=== PATIENT | male | born 1940 | race African-American/Black ===

== ENCOUNTER 2019-01-25 13:21 | Inpatient (IN) ==
[2019-01-25 16:03] LABS: Apearance,Urine CLEAR (Clear); Bacteria,Urine Occasional /HPF (Few); Bilirubin,Urine Negative (Negative); Blood, Urine Negative (Negative); Glucose,Urine (UA) Negative (Negative); Ketones,Urine Negative (Negative); Mucus,Urine Occasional /LPF (Occasional); Nitrite,Urine Negative (Negative); Protein,Urine 30 MG/DL; RBC,Urine 2 /HPF (0-4); Squamous Epithelial Cell,Urine Occasional /HPF (0-10); Urine Color Yellow (Yellow); Urine Specific Gravity 1.023 (1.001-1.035); Urine Urobilinogen < 2.0 EU/DL (0.2-1.0); WBC,Urine 44 /HPF (0-6)
[2019-01-25 16:08] LABS: Basophils % 0.2 % (0.0-0.8); Eosinophils # 0.1 10*3/uL (0.0-0.87); Hematocrit 38.3 VOL% (42.0-52.0); Hemoglobin 12.4 GM/DL (14.0-18.0); Immature Granulocytes % 0.3 %; Immature Granulocytes Absolute 0.03 #; Lymphocytes # 1.6 10*3/uL (1.4-4.0); Mean Corpuscular HGB Conc 32.4 GM/DL (32-36); Mean Platelet Volume 8.7 FL (9.6-12.0); Monocytes % 14.8 % (1.7-12.7); Neutrophils % 65.7 % (38.7-73.9); Platelet Count 312 T/CUMM (130-400); Red Blood Count 4.03 MC/CUMM (3.8-5.5); Red Cell Distribution Width 11.8 % (9.3-17.3); White Blood Count 9.1 T/CUMM (4-12)
[2019-01-25 16:26] LABS: Bilirubin,Total 0.9 MG/DL (0.2-1.0); Calcium 9.9 MG/DL (8.5-10.1); Osmolality,Calculated 282.3 MOS/KG (273-304); Total Protein 7.2 G/DL (6.4-8.3)
[2019-01-25] MEDS ORDERED: MAGNESIUM SULF RIDER 2 GM in PREMIX 1 EACH IV PRN (17:48)
[2019-01-25] MEDS ORDERED: MAGNESIUM SULF RIDER 4 GM in PREMIX 1 EACH IV PRN (17:48)
[2019-01-25] MEDS ORDERED: ZALEPLON 5 MG CAPSULE PO PRN (17:48)
[2019-01-25] MEDS ORDERED: POTASSIUM CHLORIDE RIDER 10 MEQ in PREMIX 1 EACH IV PRN (17:48)
[2019-01-25] MEDS ORDERED: MAGNESIUM CITRATE 300 ML BOTTLE PO ONE (17:53)
[2019-01-25] MEDS: LEVOFLOXACIN INJ 500 MG in PREMIX 1 EACH IV SCH (21:01)
[2019-01-26 04:37] LABS: Basophils % 0.4 % (0.0-0.8); Eosinophils # 0.1 10*3/uL (0.0-0.87); Eosinophils % 1.2 % (0.00-10.9); Hematocrit 35.9 VOL% (42.0-52.0); Hemoglobin 11.8 GM/DL (14.0-18.0); Immature Granulocytes % 0.4 %; Immature Granulocytes Absolute 0.03 #; Lymphocytes # 1.4 10*3/uL (1.4-4.0); Lymphocytes % 17.2 % (21.2-54.2); Mean Corpuscular HGB Conc 32.9 GM/DL (32-36); Mean Corpuscular Volume 93.7 FL (87-102); Mean Platelet Volume 8.7 FL (9.6-12.0); Monocytes % 13.1 % (1.7-12.7); Neutrophils % 67.7 % (38.7-73.9); Platelet Count 307 T/CUMM (130-400); Red Blood Count 3.83 MC/CUMM (3.8-5.5); Red Cell Distribution Width 11.8 % (9.3-17.3); White Blood Count 8.3 T/CUMM (4-12)
[2019-01-26 05:03] LABS: Bilirubin,Direct 0.21 MG/DL (0.0-0.20); Bilirubin,Indirect 0.4 MG/DL (0.0-1.0); Bilirubin,Total 0.6 MG/DL (0.2-1.0)
[2019-01-26 05:15] LABS: Albumin 2.7 G/DL (3.4-5.0); Bilirubin,Total 0.7 MG/DL (0.2-1.0); Calcium 9.7 MG/DL (8.5-10.1); Osmolality,Calculated 281.3 MOS/KG (273-304); Risk Ratio 3.37; Thyroid Stimulating Hormone 1.81 uIU/ml (0.358-3.74); Total Protein 6.8 G/DL (6.4-8.3); VLDL CHOLESTEROL 11.2 MG/DL
[2019-01-26] MEDS ORDERED: CLOPIDOGREL 75 MG TABLET PO SCH (09:00)
[2019-01-26] MEDS ORDERED: guaiFENesin/DM ER 600-30 MG TABLET PO PRN (09:00)
[2019-01-26] MEDS: DOCUSATE SODIUM 100 MG CAPSULE PO SCH (09:30)
[2019-01-26] MEDS: LOSARTAN 50 MG TABLET PO SCH (09:30)
[2019-01-26] MEDS: BISACODYL 5 MG TABLET PO SCH (09:30)
[2019-01-26] MEDS: PANTOPRAZOLE 40 MG TABLET PO SCH (09:30)
[2019-01-26 10:31] LABS: Total Protein 6.9 G/DL (6.4-8.3)
[2019-01-26 12:43] LABS: Immuno Free Light Chain Kappa 2.37 MG/DL (0.33-1.94); Immuno Free Light Chain Lambda 2.28 MG/DL (0.57-2.63); Immuno Free Light Chain Ratio 1.04 MG/DL (0.26-1.65)
[2019-01-26] MEDS ORDERED: ONDANSETRON 4 MG/2 ML VIAL IV PRN (17:24)
[2019-01-26] MEDS: LEVOFLOXACIN INJ 500 MG in PREMIX 1 EACH IV SCH (18:24)
[2019-01-26] MEDS ORDERED: ATORVASTATIN 40 MG TABLET PO SCH (21:00)
[2019-01-27 05:10] LABS: Total Protein (Chem) 6.9 G/DL (6.4-8.3)
[2019-01-27] MEDS: LOSARTAN 50 MG TABLET PO SCH (08:18)
[2019-01-27] MEDS: PANTOPRAZOLE 40 MG TABLET PO SCH (08:18)
[2019-01-27] MEDS: DOCUSATE SODIUM 100 MG CAPSULE PO SCH (08:18)
[2019-01-27] MEDS: BISACODYL 5 MG TABLET PO SCH (08:18)
[2019-01-27 08:20] LABS: Albumin (SPE) 3.8 G/DL (3.2-5.3); Albumin (SPE) Rel % 55.1 %; Alpha 1 (SPE) 0.3 G/DL (0.1-0.4); Alpha 1 (SPE) Rel % 4.9 %; Alpha 2 (SPE) Rel % 14.4 %; Beta (SPE) 0.8 G/DL (0.5-1.1); Beta (SPE) Rel % 11.3 %; Gamma (SPE) Rel % 14.3 %
[2019-01-27] MEDS ORDERED: MAGNESIUM CITRATE 300 ML BOTTLE PO ONE (09:14)
[2019-01-27 15:58] VITALS: BP 138/84
[2019-01-27] MEDS ORDERED: PANTOPRAZOLE 40 MG TABLET PO SCH (21:00)
== END 2019-01-27 17:08 | disposition home or self-care (01) | DRG 181 ==
LOC: N.ED 13:21 → SUATTDRO 17:48 → N.EDINP 17:48 → SUPCPDRO 17:48 → N.EDINP 19:54 → N.4E 20:28
PROVIDERS: ADMIT Phlebology; ATTEND Internal Medicine

== ENCOUNTER 2021-07-12 11:30 | Inpatient (IN) ==
[2021-07-12 12:29] LABS: Basophils % 0.3 % (0.0-0.8); Eosinophils # 0.1 10*3/uL (0.0-0.87); Eosinophils % 1.8 % (0.00-10.9); Hematocrit 42.6 VOL% (42.0-52.0); Hemoglobin 14.2 GM/DL (14.0-18.0); Immature Granulocytes % 0.5 %; Immature Granulocytes Absolute 0.03 #; Lymphocytes # 1.4 10*3/uL (1.4-4.0); Lymphocytes % 20.8 % (21.2-54.2); Mean Corpuscular HGB Conc 33.3 GM/DL (32-36); Mean Corpuscular Volume 96.4 FL (87-102); Mean Platelet Volume 8.4 FL (9.6-12.0); Monocytes % 9.8 % (1.7-12.7); Neutrophils % 66.8 % (38.7-73.9); Platelet Count 294 T/CUMM (130-400); Red Blood Count 4.42 MC/CUMM (3.8-5.5); Red Cell Distribution Width 13.2 % (9.3-17.3); White Blood Count 6.6 T/CUMM (4-12)
[2021-07-12 12:40] LABS: Alanine Aminotransferase 20 U/L (16-61); Albumin 3.3 G/DL (3.4-5.0); Alkaline Phosphatase 82 U/L (45-117); Aspartate Amino Transferase 20 U/L (0-37); Bilirubin,Total < 0.39 MG/DL (0.20-1.00); Blood Urea Nitrogen 18 MG/DL (7-18); Calcium 9.3 MG/DL (8.5-10.1); Carbon Dioxide 29 MMOL/L (21-32); Estimated Glom Filtration Rate 70 ML/MIN; Glucose 96 MG/DL (74-106); Osmolality,Calculated 278.5 MOS/KG (273-304); Potassium 3.7 MMOL/L (3.5-5.1); Sodium 139 MMOL/L (136-145)
[2021-07-12] MEDS ORDERED: ACETAMINOPHEN 500 MG TABLET PO STA (14:04)
[2021-07-12] MEDS ORDERED: GLUCAGON 1 MG VIAL IM PRN (15:01)
[2021-07-12] MEDS ORDERED: LABETALOL 20 MG/4 ML SYRINGE IV PRN (15:01)
[2021-07-12] MEDS ORDERED: ONDANSETRON 4 MG/2 ML VIAL IV PRN (15:03)
[2021-07-12] MEDS ORDERED: DEXTROSE 10% 250 ML BAG IV PRN (15:12)
[2021-07-12 15:34] LABS: Mucus,Urine Occasional /LPF (Occasional); Squamous Epithelial Cell,Urine Occasional /HPF (0-10); Urine Appearance Clear (Clear); Urine Color Yellow (Yellow); Urine pH 5.5 (4.5-8.0)
[2021-07-12 15:35] LABS: Bilirubin,Urine Negative (Negative); Blood, Urine Negative (Negative); Glucose,Urine (UA) Negative (Negative); Ketones,Urine Negative (Negative); Nitrite,Urine Negative (Negative); Protein,Urine Negative (Negative)
[2021-07-12 15:46] LABS: Barbiturates Screen,Urine Negative (Negative); Benzodiazepines Screen,Urine Negative (Negative); Cannabinoid Screen,Urine Positive (Negative); Opiate Screen,Urine Positive (Negative); Phencyclidine Screen,Urine Negative (Negative)
[2021-07-12] MEDS ORDERED: ENOXAPARIN 40 MG/0.4 ML SYRINGE SUBCUT SCH (16:00)
[2021-07-12] MEDS: ASPIRIN 325 MG TABLET PO SCH (16:00)
[2021-07-12] MEDS: LACTATED RINGERS 1,000 ML IV SCH (16:00)
[2021-07-13 06:10] LABS: Basophils % 0.7 % (0.0-0.8); Eosinophils # 0.2 10*3/uL (0.0-0.87); Eosinophils % 2.5 % (0.00-10.9); Hematocrit 42.3 VOL% (42.0-52.0); Hemoglobin 14.1 GM/DL (14.0-18.0); Immature Granulocytes % 0.3 %; Immature Granulocytes Absolute 0.02 #; Lymphocytes # 1.7 10*3/uL (1.4-4.0); Lymphocytes % 28.5 % (21.2-54.2); Mean Corpuscular HGB Conc 33.3 GM/DL (32-36); Mean Corpuscular Volume 96.4 FL (87-102); Mean Platelet Volume 8.9 FL (9.6-12.0); Monocytes % 9.8 % (1.7-12.7); Neutrophils % 58.2 % (38.7-73.9); Platelet Count 289 T/CUMM (130-400); Red Blood Count 4.39 MC/CUMM (3.8-5.5); Red Cell Distribution Width 13.2 % (9.3-17.3); White Blood Count 5.9 T/CUMM (4-12)
[2021-07-13 06:43] LABS: Calcium 9.1 MG/DL (8.5-10.1); Osmolality,Calculated 278.4 MOS/KG (273-304); Potassium 3.8 MMOL/L (3.5-5.1); Risk Ratio 4.25; Thyroid Stimulating Hormone 2.3 uIU/ml (0.358-3.74); VLDL Cholesterol 17.8 MG/DL
[2021-07-13] MEDS: LACTATED RINGERS 1,000 ML IV SCH ×3 (07:40→20:37)
[2021-07-13] MEDS: PANTOPRAZOLE 40 MG TABLET PO SCH (08:27)
[2021-07-13] MEDS: ASPIRIN 325 MG TABLET PO SCH (08:27)
[2021-07-13] MEDS: LOSARTAN 50 MG TABLET PO SCH (08:27)
[2021-07-13] MEDS: ACETAMINOPHEN 325 MG TABLET PO PRN (08:29)
[2021-07-13] MEDS: MAGNESIUM OXIDE 400 MG TABLET PO SCH (08:29)
[2021-07-13] MEDS: THIAMINE 100 MG TABLET PO SCH ×2 (11:35→20:35)
[2021-07-13] MEDS: CHOLECALCIFEROL 1,000 UNIT TABLET PO SCH (11:36)
[2021-07-13] MEDS: traMADol 50 MG TABLET PO PRN ×2 (13:03→20:35)
[2021-07-13] MEDS ORDERED: KETOROLAC 30 MG/1 ML VIAL IV ONE (15:03)
[2021-07-13] MEDS: ENOXAPARIN 60 MG/0.6 ML SYRINGE SUBCUT SCH (15:16)
[2021-07-13] MEDS: CYPROHEPTADINE 4 MG TABLET PO SCH ×2 (15:16→20:35)
[2021-07-14] MEDS: ENOXAPARIN 60 MG/0.6 ML SYRINGE SUBCUT SCH (03:56)
[2021-07-14] MEDS: LACTATED RINGERS 1,000 ML IV SCH (07:31)
[2021-07-14] MEDS: CHOLECALCIFEROL 1,000 UNIT TABLET PO SCH (09:38)
[2021-07-14] MEDS: MAGNESIUM OXIDE 400 MG TABLET PO SCH (09:38)
[2021-07-14] MEDS: LOSARTAN 50 MG TABLET PO SCH (09:39)
[2021-07-14] MEDS: ASPIRIN 325 MG TABLET PO SCH (09:39)
[2021-07-14] MEDS: ACETAMINOPHEN 325 MG TABLET PO PRN (09:39)
[2021-07-14] MEDS: THIAMINE 100 MG TABLET PO SCH ×2 (09:39→20:31)
[2021-07-14] MEDS: CYPROHEPTADINE 4 MG TABLET PO SCH ×3 (09:39→20:30)
[2021-07-14] MEDS: PANTOPRAZOLE 40 MG TABLET PO SCH (09:39)
[2021-07-14] MEDS: traMADol 50 MG TABLET PO PRN (11:49)
[2021-07-15] MEDS: LACTATED RINGERS 1,000 ML IV SCH (02:00)
[2021-07-15] MEDS: MAGNESIUM OXIDE 400 MG TABLET PO SCH (09:33)
[2021-07-15] MEDS: THIAMINE 100 MG TABLET PO SCH ×2 (09:34→20:40)
[2021-07-15] MEDS: PANTOPRAZOLE 40 MG TABLET PO SCH (09:34)
[2021-07-15] MEDS: ASPIRIN 325 MG TABLET PO SCH (09:34)
[2021-07-15] MEDS: LOSARTAN 50 MG TABLET PO SCH (09:34)
[2021-07-15] MEDS: CHOLECALCIFEROL 1,000 UNIT TABLET PO SCH (09:34)
[2021-07-15] MEDS: CYPROHEPTADINE 4 MG TABLET PO SCH ×3 (09:35→20:40)
[2021-07-15] MEDS: ENOXAPARIN 40 MG/0.4 ML SYRINGE SUBCUT SCH (09:41)
[2021-07-15] MEDS: traMADol 50 MG TABLET PO PRN ×2 (09:41→16:43)
[2021-07-15] MEDS: ACETAMINOPHEN 325 MG TABLET PO PRN ×2 (12:19→20:40)
[2021-07-15] MEDS: ROSUVASTATIN 20 MG TABLET PO SCH (20:40)
[2021-07-16] MEDS: LACTATED RINGERS 1,000 ML IV SCH ×2 (03:02→13:26)
[2021-07-16 05:19] LABS: Basophils % 0.6 % (0.0-0.8); Eosinophils # 0.2 10*3/uL (0.0-0.87); Eosinophils % 4.2 % (0.00-10.9); Hematocrit 38.6 VOL% (42.0-52.0); Hemoglobin 12.9 GM/DL (14.0-18.0); Immature Granulocytes % 0.2 %; Immature Granulocytes Absolute 0.01 #; Lymphocytes # 1.8 10*3/uL (1.4-4.0); Lymphocytes % 33.5 % (21.2-54.2); Mean Corpuscular HGB Conc 33.4 GM/DL (32-36); Mean Corpuscular Volume 96.3 FL (87-102); Mean Platelet Volume 8.8 FL (9.6-12.0); Monocytes % 12.5 % (1.7-12.7); Platelet Count 245 T/CUMM (130-400); Red Blood Count 4.01 MC/CUMM (3.8-5.5); Red Cell Distribution Width 13.1 % (9.3-17.3); White Blood Count 5.3 T/CUMM (4-12)
[2021-07-16 05:33] LABS: Osmolality,Calculated 277.4 MOS/KG (273-304); Potassium 4.1 MMOL/L (3.5-5.1)
[2021-07-16] MEDS: PANTOPRAZOLE 40 MG TABLET PO SCH (08:43)
[2021-07-16] MEDS: ASPIRIN 325 MG TABLET PO SCH (08:43)
[2021-07-16] MEDS: CYPROHEPTADINE 4 MG TABLET PO SCH ×3 (08:43→20:09)
[2021-07-16] MEDS: THIAMINE 100 MG TABLET PO SCH ×2 (08:43→20:10)
[2021-07-16] MEDS: CHOLECALCIFEROL 1,000 UNIT TABLET PO SCH (08:43)
[2021-07-16] MEDS: MAGNESIUM OXIDE 400 MG TABLET PO SCH (08:43)
[2021-07-16] MEDS: LOSARTAN 50 MG TABLET PO SCH (08:43)
[2021-07-16] MEDS: ENOXAPARIN 40 MG/0.4 ML SYRINGE SUBCUT SCH (08:44)
[2021-07-16] MEDS: traMADol 50 MG TABLET PO PRN ×2 (09:38→17:27)
[2021-07-16] MEDS: ACETAMINOPHEN 325 MG TABLET PO PRN ×2 (13:25→20:10)
[2021-07-16] MEDS: ROSUVASTATIN 20 MG TABLET PO SCH (20:10)
[2021-07-17 05:27] LABS: Basophils % 0.6 % (0.0-0.8); Eosinophils # 0.2 10*3/uL (0.0-0.87); Eosinophils % 4.3 % (0.00-10.9); Hemoglobin 12.2 GM/DL (14.0-18.0); Immature Granulocytes % 0.2 %; Immature Granulocytes Absolute 0.01 #; Lymphocytes # 1.6 10*3/uL (1.4-4.0); Mean Corpuscular HGB Conc 33.9 GM/DL (32-36); Mean Corpuscular Volume 94.7 FL (87-102); Mean Platelet Volume 8.7 FL (9.6-12.0); Monocytes % 11.6 % (1.7-12.7); Neutrophils % 53.3 % (38.7-73.9); Platelet Count 243 T/CUMM (130-400); Red Cell Distribution Width 13.1 % (9.3-17.3); White Blood Count 5.4 T/CUMM (4-12)
[2021-07-17 05:48] LABS: Calcium 8.7 MG/DL (8.5-10.1); Osmolality,Calculated 276.4 MOS/KG (273-304); Potassium 3.9 MMOL/L (3.5-5.1)
[2021-07-17] MEDS: ASPIRIN 325 MG TABLET PO SCH ×2 (08:44→23:42)
[2021-07-17] MEDS: CYPROHEPTADINE 4 MG TABLET PO SCH ×3 (08:44→21:44)
[2021-07-17] MEDS: LACTATED RINGERS 1,000 ML IV SCH ×3 (08:45→10:44)
[2021-07-17] MEDS: ENOXAPARIN 40 MG/0.4 ML SYRINGE SUBCUT SCH (08:45)
[2021-07-17] MEDS: CHOLECALCIFEROL 1,000 UNIT TABLET PO SCH (08:46)
[2021-07-17] MEDS: THIAMINE 100 MG TABLET PO SCH ×2 (08:46→21:45)
[2021-07-17] MEDS: PANTOPRAZOLE 40 MG TABLET PO SCH (08:46)
[2021-07-17] MEDS: MAGNESIUM OXIDE 400 MG TABLET PO SCH (08:46)
[2021-07-17] MEDS: LOSARTAN 50 MG TABLET PO SCH (08:50)
[2021-07-17] MEDS: ACETAMINOPHEN 325 MG TABLET PO PRN (08:50)
[2021-07-17] MEDS ORDERED: fentaNYL 100 MCG/2 ML VIAL IV ONE (12:36)
[2021-07-17] MEDS ORDERED: MIDAZOLAM 2 MG/2 ML VIAL IV ONE (12:36)
[2021-07-17] MEDS ORDERED: DIAZEPAM 5 MG TABLET PO ONE (12:37)
[2021-07-17] MEDS ORDERED: HEPARIN 5,000 UNIT/1 ML VIAL ONE (13:04)
[2021-07-17] MEDS ORDERED: HEPARIN/NACL 0.9% 2 UNITS/ML 4,000 UNIT/2,000 ML BAG IV ONE (13:05)
[2021-07-17] MEDS ORDERED: HEPARIN 5,000 UNIT/1 ML VIAL IV ONE (14:18)
[2021-07-17] MEDS ORDERED: HEPARIN 1,000 UNIT/1 ML VIAL ONE (15:11)
[2021-07-17] MEDS ORDERED: hydrALAZINE 20 MG/1 ML VIAL ONE (15:17)
[2021-07-17] MEDS ORDERED: HEPARIN 1,000 UNIT/1 ML VIAL IV ONE (15:17)
[2021-07-17] MEDS ORDERED: hydrALAZINE 20 MG/1 ML VIAL IV ONE ×2 (15:17→15:47)
[2021-07-17] MEDS ORDERED: ALTEPLASE 2 MG VIAL ONE (15:22)
[2021-07-17] MEDS: SODIUM CHLORIDE 0.45% 1,000 ML IV SCH (17:51)
[2021-07-17] MEDS: traMADol 50 MG TABLET PO PRN (18:22)
[2021-07-17] MEDS: ROSUVASTATIN 20 MG TABLET PO SCH (21:45)
[2021-07-18 04:59] LABS: Basophils % 0.3 % (0.0-0.8); Eosinophils # 0.1 10*3/uL (0.0-0.87); Eosinophils % 2.1 % (0.00-10.9); Hematocrit 38.5 VOL% (42.0-52.0); Immature Granulocytes % 0.3 %; Immature Granulocytes Absolute 0.02 #; Lymphocytes # 1.2 10*3/uL (1.4-4.0); Lymphocytes % 18.7 % (21.2-54.2); Mean Corpuscular HGB Conc 33.8 GM/DL (32-36); Mean Corpuscular Volume 93.7 FL (87-102); Mean Platelet Volume 8.7 FL (9.6-12.0); Monocytes % 11.2 % (1.7-12.7); Neutrophils % 67.4 % (38.7-73.9); Platelet Count 228 T/CUMM (130-400); Red Blood Count 4.11 MC/CUMM (3.8-5.5); Red Cell Distribution Width 12.9 % (9.3-17.3); White Blood Count 6.6 T/CUMM (4-12)
[2021-07-18 05:19] LABS: Calcium 8.9 MG/DL (8.5-10.1); Potassium 3.9 MMOL/L (3.5-5.1)
[2021-07-18] MEDS: traMADol 50 MG TABLET PO PRN ×3 (07:31→21:34)
[2021-07-18] MEDS: ENOXAPARIN 40 MG/0.4 ML SYRINGE SUBCUT SCH (08:56)
[2021-07-18] MEDS: CYPROHEPTADINE 4 MG TABLET PO SCH ×3 (08:57→20:42)
[2021-07-18] MEDS: ASPIRIN 325 MG TABLET PO SCH (08:57)
[2021-07-18] MEDS: THIAMINE 100 MG TABLET PO SCH ×2 (08:57→20:43)
[2021-07-18] MEDS: LOSARTAN 50 MG TABLET PO SCH (08:57)
[2021-07-18] MEDS: PANTOPRAZOLE 40 MG TABLET PO SCH (08:57)
[2021-07-18] MEDS: CHOLECALCIFEROL 1,000 UNIT TABLET PO SCH (08:57)
[2021-07-18] MEDS: MAGNESIUM OXIDE 400 MG TABLET PO SCH (08:57)
[2021-07-18] MEDS ORDERED: CLOPIDOGREL 75 MG TABLET PO SCH (09:00)
[2021-07-18] MEDS: RIVAROXABAN 2.5 MG TABLET PO SCH ×2 (10:07→20:43)
[2021-07-18] MEDS: ACETAMINOPHEN 325 MG TABLET PO PRN (13:18)
[2021-07-18] MEDS: SODIUM CHLORIDE 0.45% 1,000 ML IV SCH (15:48)
[2021-07-18] MEDS: ROSUVASTATIN 20 MG TABLET PO SCH (20:43)
[2021-07-19] MEDS: traMADol 50 MG TABLET PO PRN (04:52)
[2021-07-19 05:15] LABS: Basophils % 0.3 % (0.0-0.8); Eosinophils # 0.2 10*3/uL (0.0-0.87); Eosinophils % 3.1 % (0.00-10.9); Hematocrit 38.4 VOL% (42.0-52.0); Hemoglobin 12.9 GM/DL (14.0-18.0); Immature Granulocytes % 0.3 %; Immature Granulocytes Absolute 0.02 #; Lymphocytes # 1.5 10*3/uL (1.4-4.0); Lymphocytes % 22.5 % (21.2-54.2); Mean Corpuscular HGB Conc 33.6 GM/DL (32-36); Mean Corpuscular Volume 94.8 FL (87-102); Mean Platelet Volume 8.5 FL (9.6-12.0); Monocytes % 10.9 % (1.7-12.7); Neutrophils % 62.9 % (38.7-73.9); Platelet Count 228 T/CUMM (130-400); Red Blood Count 4.05 MC/CUMM (3.8-5.5); Red Cell Distribution Width 13.1 % (9.3-17.3); White Blood Count 6.5 T/CUMM (4-12)
[2021-07-19 05:43] LABS: Calcium 9.1 MG/DL (8.5-10.1); Osmolality,Calculated 273.7 MOS/KG (273-304); Potassium 3.8 MMOL/L (3.5-5.1)
[2021-07-19] MEDS: LOSARTAN 50 MG TABLET PO SCH (08:55)
[2021-07-19] MEDS: THIAMINE 100 MG TABLET PO SCH (08:56)
[2021-07-19] MEDS: CYPROHEPTADINE 4 MG TABLET PO SCH (08:56)
[2021-07-19] MEDS: RIVAROXABAN 2.5 MG TABLET PO SCH (08:56)
[2021-07-19] MEDS: MAGNESIUM OXIDE 400 MG TABLET PO SCH (08:56)
[2021-07-19] MEDS: PANTOPRAZOLE 40 MG TABLET PO SCH (08:56)
[2021-07-19] MEDS: CHOLECALCIFEROL 1,000 UNIT TABLET PO SCH (08:56)
[2021-07-19] MEDS: ACETAMINOPHEN 325 MG TABLET PO PRN (08:57)
[2021-07-19] MEDS ORDERED: ASPIRIN EC 81 MG TABLET PO SCH (09:00)
[2021-07-19 12:08] VITALS: BP 128/81
== END 2021-07-19 11:56 | disposition home health service (06) | DRG 271 ==
LOC: N.ED 11:30 → SUATTDRO 15:02 → N.EDINP 15:02 → N.5E 16:48
PROVIDERS: ADMIT Phlebology; ATTEND Hospitalist

== ENCOUNTER 2021-08-24 18:20 | Inpatient (IN) ==
[2021-08-24] MEDS ORDERED: SODIUM CHLORIDE 0.9% 1,000 ML IV STA (18:58)
[2021-08-24 19:08] LABS: Basophils % 0.4 % (0.0-0.8); Eosinophils # 0.3 10*3/uL (0.0-0.87); Eosinophils % 3.8 % (0.00-10.9); Hematocrit 36.8 VOL% (42.0-52.0); Immature Granulocytes % 0.4 %; Immature Granulocytes Absolute 0.03 #; Lymphocytes # 1.6 10*3/uL (1.4-4.0); Lymphocytes % 24.1 % (21.2-54.2); Mean Corpuscular HGB Conc 32.6 GM/DL (32-36); Mean Corpuscular Volume 97.6 FL (87-102); Mean Platelet Volume 8.5 FL (9.6-12.0); Monocytes # 0.7 10*3/uL (0.11-0.8); Neutrophils % 61.3 % (38.7-73.9); Platelet Count 295 T/CUMM (130-400); Red Blood Count 3.77 MC/CUMM (3.8-5.5); Red Cell Distribution Width 12.8 % (9.3-17.3); White Blood Count 6.8 T/CUMM (4-12)
[2021-08-24 19:20] LABS: Alanine Aminotransferase 23 U/L (16-61); Albumin 3.2 G/DL (3.4-5.0); Alkaline Phosphatase 69 U/L (45-117); Aspartate Amino Transferase 24 U/L (0-37); Blood Urea Nitrogen 17 MG/DL (7-18); Calcium 9.7 MG/DL (8.5-10.1); Carbon Dioxide 28 MMOL/L (21-32); Chloride 111 MMOL/L (98-107); Glucose 105 MG/DL (74-106); Osmolality,Calculated 284.1 MOS/KG (273-304); Potassium 4.1 MMOL/L (3.5-5.1); Sodium 142 MMOL/L (136-145); Total Protein 6.6 G/DL (6.4-8.2)
[2021-08-24] MEDS ORDERED: KETOROLAC 30 MG/1 ML VIAL IV STA (20:36)
[2021-08-24 20:48] LABS: Mucus,Urine Many /LPF (Occasional); Urine Appearance Clear (Clear); Urine Color Yellow (Yellow)
[2021-08-24 20:49] LABS: Bilirubin,Urine Negative (Negative); Blood, Urine Trace mg/dL (Negative); Glucose,Urine (UA) Negative (Negative); Ketones,Urine Negative (Negative); Nitrite,Urine Negative (Negative); Protein,Urine 100 mg/dL (Negative); Urine Specific Gravity > 1.030 (1.001-1.035); Urine pH 5.5 (4.5-8.0)
[2021-08-24] MEDS ORDERED: ACETAMINOPHEN 325 MG TABLET PO PRN (21:09)
[2021-08-24] MEDS ORDERED: GLUCAGON 1 MG VIAL IM PRN (21:09)
[2021-08-24] MEDS ORDERED: ONDANSETRON 4 MG/2 ML VIAL IV PRN (21:09)
[2021-08-24] MEDS ORDERED: ASPIRIN 325 MG TABLET PO STA (21:09)
[2021-08-24] MEDS ORDERED: DEXTROSE 10% 250 ML BAG IV PRN (21:09)
[2021-08-24 21:18] LABS: Barbiturates Screen,Urine Negative (Negative); Benzodiazepines Screen,Urine Negative (Negative); Cannabinoid Screen,Urine Positive (Negative); Opiate Screen,Urine Negative (Negative); Phencyclidine Screen,Urine Negative (Negative)
[2021-08-24] MEDS ORDERED: hydrALAZINE 20 MG/1 ML VIAL IV PRN (21:48)
[2021-08-24] MEDS: SODIUM CHLORIDE 0.9% 1,000 ML IV SCH (21:57)
[2021-08-25 05:56] LABS: Basophils % 0.6 % (0.0-0.8); Eosinophils # 0.3 10*3/uL (0.0-0.87); Eosinophils % 5.1 % (0.00-10.9); Hematocrit 34.4 VOL% (42.0-52.0); Hemoglobin 11.2 GM/DL (14.0-18.0); Immature Granulocytes % 0.3 %; Immature Granulocytes Absolute 0.02 #; Lymphocytes # 1.6 10*3/uL (1.4-4.0); Lymphocytes % 24.6 % (21.2-54.2); Mean Corpuscular HGB Conc 32.6 GM/DL (32-36); Monocytes # 0.7 10*3/uL (0.11-0.8); Monocytes % 11.1 % (1.7-12.7); Neutrophils % 58.3 % (38.7-73.9); Platelet Count 270 T/CUMM (130-400); Red Blood Count 3.51 MC/CUMM (3.8-5.5); Red Cell Distribution Width 12.7 % (9.3-17.3); White Blood Count 6.5 T/CUMM (4-12)
[2021-08-25 06:13] LABS: Calcium 9.4 MG/DL (8.5-10.1); Osmolality,Calculated 287.8 MOS/KG (273-304); Potassium 3.9 MMOL/L (3.5-5.1); Risk Ratio 2.78; VLDL Cholesterol 11.8 MG/DL
[2021-08-25] MEDS: SODIUM CHLORIDE 0.9% 1,000 ML IV SCH ×2 (09:07→20:28)
[2021-08-25] MEDS: levETIRAcetam 500 MG TABLET PO SCH ×2 (13:04→20:10)
[2021-08-25] MEDS: PANTOPRAZOLE 40 MG TABLET PO SCH (13:16)
[2021-08-25] MEDS: RIVAROXABAN 2.5 MG TABLET PO SCH ×2 (13:17→20:10)
[2021-08-25] MEDS: ASPIRIN CHEW 81 MG TABLET PO SCH (13:17)
[2021-08-25] MEDS ORDERED: ROSUVASTATIN 20 MG TABLET PO SCH (21:00)
[2021-08-26] MEDS: SODIUM CHLORIDE 0.9% 1,000 ML IV SCH (06:27)
[2021-08-26 07:18] VITALS: BP 167/80
[2021-08-26 08:40] LABS: Basophils % 0.5 % (0.0-0.8); Eosinophils # 0.3 10*3/uL (0.0-0.87); Eosinophils % 3.4 % (0.00-10.9); Hematocrit 37.6 VOL% (42.0-52.0); Hemoglobin 12.4 GM/DL (14.0-18.0); Immature Granulocytes % 0.3 %; Immature Granulocytes Absolute 0.02 #; Lymphocytes # 1.6 10*3/uL (1.4-4.0); Lymphocytes % 20.4 % (21.2-54.2); Mean Corpuscular Volume 95.9 FL (87-102); Mean Platelet Volume 8.6 FL (9.6-12.0); Monocytes # 0.6 10*3/uL (0.11-0.8); Neutrophils % 67.4 % (38.7-73.9); Platelet Count 275 T/CUMM (130-400); Red Blood Count 3.92 MC/CUMM (3.8-5.5); Red Cell Distribution Width 12.6 % (9.3-17.3); White Blood Count 7.9 T/CUMM (4-12)
[2021-08-26 08:56] LABS: Calcium 9.4 MG/DL (8.5-10.1); Osmolality,Calculated 277.4 MOS/KG (273-304); Potassium 3.6 MMOL/L (3.5-5.1)
[2021-08-26] MEDS ORDERED: MAGNESIUM OXIDE 400 MG TABLET PO SCH (09:00)
[2021-08-26] MEDS ORDERED: LOSARTAN 50 MG TABLET PO SCH (09:00)
[2021-08-26] MEDS: ASPIRIN CHEW 81 MG TABLET PO SCH (09:07)
[2021-08-26] MEDS: PANTOPRAZOLE 40 MG TABLET PO SCH (09:08)
[2021-08-26] MEDS: levETIRAcetam 500 MG TABLET PO SCH (09:08)
[2021-08-26] MEDS: RIVAROXABAN 2.5 MG TABLET PO SCH (09:08)
== END 2021-08-26 12:00 | disposition home or self-care (01) | DRG 101 ==
LOC: EDBD → EDUNIT# → N.EDINP 18:20 → N.ED 18:20 → SUATTDRO 21:09 → N.TELEN 22:03 → N.3E 22:06
PROVIDERS: ADMIT Internal Medicine; ATTEND Internal Medicine